=== PATIENT | female | born 1970 | race Caucasian/White ===

== ENCOUNTER 2016-06-11 11:41 | Day surgery (SDC) | payer OTHER ==
[2016-06-11] VITALS (14 sets, daily range): BP systolic 110–131; BP diastolic 49–78; PULSE 85–93; RESP 12–18; O2SAT 91–96
[~2016-06-11] VITALS: Ht 167.6 cm; Wt 111.0 kg
[~2016-06-11 11:41] MED LIST: ATOR80TA PO; CHOL200025 PO; CeFAZolin 2 Gm/50 mL D5W IV Premix IV ONE; GABA-502 PO; GLIP1TAB6 PO; LISI40TA PO; SITA100T12 PO; VITA150T PO
[2016-06-11] MEDS ORDERED: HYDROmorphone 2 mg/mL Inj ONE ×2 (11:42)
[2016-06-11] MEDS ORDERED: Phenylephrine/NS 100 mCg/mL 10 mL Syringe IVPUSH ONE (11:42)
[2016-06-11] MEDS ORDERED: EPHEDrine/NS 5 mg/mL 5 mL Syringe ONE (11:42)
[2016-06-11] MEDS ORDERED: fentaNYL-PF 50 mCg/mL 2 mL Inj ONE ×2 (11:42)
[2016-06-11] MEDS ORDERED: Propofol 10,000 mCg/mL 20 mL Inj ONE (11:42)
[2016-06-11] MEDS ORDERED: Ondansetron 2 mg/mL 2 mL Inj ONE (11:42)
--- NOTE | 2016-06-11 12:23 | PCM.HPANE ---
Patient Data Date of Service: Jun 11, 2016 Surgeon Admitting Provider: Attending Provider:Lucas Velazquez DO Primary Care Physician:Asa Gomes DO Other Provider:Tariq Lion Anesthesia Reason for Visit Right Rotator Cuff Tear, Impingement Syndrome, Sla Ht/WT & BMI Height (Feet): 5 Height (Inches): 6 Weight (Kilograms): 111 Body Mass Index 39.00 Allergies Coded Allergies: No Known Allergies (Unverified , 11/21/11) Past Anesthesia History Anesthesia History: Denies:: Anesthesia Reactions, Fam Anesthesia Reaction, Malignant Hyperthermia Diabetes History Hx Diabetes?: Yes (last Hgb A1C 7.4 on 06/01/16) Type of Diabetes: Type II Glycemic Control: Oral Medication MRSA MRSA: No Medications Hypertension Medication: Yes Home Meds Incl Beta Mercedes: No Reported Medications Vitamin B Complex & Vit C No.4 (Super B Complex)150 Mg Vesymy771 Mg PO DAILY 06/08/16 Cholecalciferol (Vitamin D3) (Vitamin D3)2,000 Unit Tablet2,000 Unit PO DAILY 06/08/16 Lisinopril 40 Mg Sxirbv89 Mg PO DAILY 30 Days Ref 0 06/08/16 Sitagliptin Phos (Januvia)100 Mg Xfbixw424 Mg PO DAILY Ref 0 06/08/16 Glipizide/Metformin 5-500 mg 1 Each Tablet2 Tablet PO BID 30 Days 06/08/16 Gabapentin 300 Mg Atbzpfs555 Mg PO HS Ref 0 06/08/16 Atorvastatin (Lipitor)80 Mg Iqsezy96 Mg PO DAILY Ref 0 06/08/16 Discontinued Reported Medications Lisin/HCTZ-Expunged, Do Not Renew! (Lisin/HCTZ 20/12.5-Expunged, Do Not Renew!) 1 Tab Tablet1 Tab PO BID 11/18/11 Alprazolam-Expunged Drug, Do Not Renew! 0.5 Mg Tablet0.5 Mg PO TIDP FOR PANIC ATTACK 11/18/11 Simvastatin-Expunged Drug, Choose New Med! 40 Mg Butnqz36 Mg PO DAILY IN EVENING 11/18/11 Eszopiclone-Expunged Drug, Do Not Renew! (Lunesta-Expunged Drug, Do Not Renew!) 3 Mg Tablet3 Mg PO DAILY HS 11/18/11 Sitagliptin Phosphate (Januvia)100 Mg Adthtm140 Mg PO DAILY 11/18/11 Lisinopril-Expunged Drug, Do Not Renew! 20 Mg Avdlal66 Mg PO DAILY 11/18/11 Duloxetine-Expunged Drug, Do Not Renew! (Cymbalta-Expunged Drug, Do Not Renew!) 60 Mg Capsule.dr60 Mg PO DAILY 11/18/11 Glyburide-Expunged Drug, Do Not Renew! (Diabeta-Expunged Drug, Do Not Renew!)5 Mg Tablet5 Mg PO BIDAC 11/18/11 Metformin-Expunged Drug, Do Not Renew! 850 Mg Yahuba317 Mg PO BIDWM W/AM & PM MEALS 11/18/11 Citalopram-Expunged Drug, Do Not Renew! 20 Mg Idvedl58 Mg PO DAILY 11/18/11 History History of ENT Problems?: Yes HEENT History: Denies:: Cataracts Glaucoma Hearing Problem Hx of Heart Problems?: Yes Cardiovascular History: Positive for:: Hypertension Denies:: AICD Abdominal Aortic Aneurism Atrial Fibrillation Chest Pain Congestive Heart Failure Coronary Artery Disease Edema Heart Murmur Irregular Heartbeat Pacemaker Peripheral Vascular Rheumatic Fever Thrombophlebitis Valvular Heart Disease Hx of Respiratory Problem?: Yes Respiratory History: Positive for:: Use of C-PAP Machine ( CPAP recommended) Denies:: Asthma COPD Emphysema Oxygen Administration Hx Neurologic Problems?: No Neurological History: Denies:: Headaches Multiple Sclerosis Parkinson's Disease Seizures Hx of GI Problems?: Yes Gastrointestinal History: Denies:: Gall Bladder Disease Gastroesphageal Reflux Gastrointestinal Bleeding Heartburn Hepatitis (hx Hep C - treated- no current viral load ) Hiatal Hernia Liver Disease Rectal Bleeding Hx of Problems?: No Genitourinary History: Denies:: Kidney Stones Urinary Tract Infection Female Hx: Denies:: Currently (tubal ) Problems with Breasts? Skin History: Denies:: History Skin Disorders? Pressure Ulcers Hx Musculoskeletal Problems?: Yes Musculoskeletal History: Positive for:: Musculoskeletal Trauma (right shoulder current admission problem) Denies:: Back Injury Fibromyalgia Joint Replacement Osteoarthritis Rheumatoid Arthritis Systemic Lupus Hx of Psycho/Social Problems?: No Psycho Social History: Positive for:: Hx Depression Hx Surgeries?: Yes (BTL,bilateral CTR) Hx Any Other Health Problems?: Yes Other History: Denies:: Cancer Endocrine Disease Hospitalization Thyroid Disease History Blood Transfusions: Positive for:: Accept Blood Products? Denies:: Blood Transfusions Hx Diabetes: Yes (last Hgb A1C 7.4 on 06/01/16) Hx Alcohol Use: YesAlcoholic Drinks Per Day: one to two drinks monthlyHx Substance Use: NoHave You Smoked inLast 12 mo: No Stop/Bang Treated for Sleep Apnea?: Yes Do You Have a CPAP Machine?: Yes S-Snoring: Do You Snore Loudly: No T-Tired: feel tired, fatigued: No O-Obsered: Observed not breath: No P-Blood Pressure: treated: Yes B- Body Mass Index > 35 kg/m2: Yes A- Age over 50: No N- Neck Large Circumference: No G- Gender Male: No JOVITA Total Score: 2 JOVITA Category 4 OutPt Procedure: Yes Risk Assessment Category Category 1A: Patient has history of documented sleep apnea, and HAS NOT received any narcotic, sedative or anesthesia administration during this stay. Category 1B: Patient has history of documented sleep apnea, and HAS received any narcotic , sedative or anesthesia administration during this stay Category 2: Patient has SUSPECTED Obstructive Sleep Apnea, and HAS received any narcotic , sedative or anesthesia administration during this stay. Category 3: Patient has SUSPECTED Obstructive Sleep Apnea and HAS NOT received narcotic, sedative or anesthesia administration during this stay. Category 4: Outpatient in Procedural Areas with known sleep apnea or who screen positive for High Risk via the STOP/BANG questionnaire. Exam Exam Vital Signs Vital Signs Date Time Temp Pulse Resp B/P Pulse Ox O2 Delivery O2 Flow Rate FiO2 06/11/16 12:05 85 12 127/78 96 Room Air General Appearance: Alert, Oriented X3, Cooperative, No Acute Distress HEENT/AIRWAY: MP 3 Lungs: Clear to Auscultation, Normal Air Movement Heart: Exam Unremarkable, Regular Rate/Rhythm, No Murmurs/Rubs/Gallops Plan Impression Patient chart reviewed, patient interviewed and anesthestic plan with risks, benefits, and alternatives discussed, and informed consent obtained. NPO Status: >8h ASA Physical Status: ASA3 Severe Disease Anesthetic Plan: GA, Regional Block Bene/Risks/Altern/Consents: Yes HP Complete Prior to Induction: Yes Randolph George MD Jun 11, 2016 12:23 Simon Ortiz MD Jun 11, 2016 13:24
[2016-06-11] MEDS ORDERED: CeFAZolin Inj 2 gm / 50mL D5W IV ONE (12:24)
[2016-06-11] MEDS: Lactated Ringer's 1,000 ML IV SCH ×2 (12:48→13:00)
[2016-06-11] MEDS ORDERED: oxyCODONE-Acetamin 5-325 mg Tablet PO PRN (13:25)
[2016-06-11] MEDS ORDERED: Lactated Ringer's 1,000 ML IV SCH (14:05)
[2016-06-11] MEDS ORDERED: hydrALAZINE 20 mg/mL Inj IVPUSH PRN (14:05)
[2016-06-11] MEDS ORDERED: Phenylephrine 10,000 mCg/mL Inj IVPUSH PRN (14:05)
[2016-06-11] MEDS ORDERED: Atropine 0.4 mg/mL Inj IVPUSH PRN (14:05)
[2016-06-11] MEDS ORDERED: Lactated Ringer's 500 ML IV PRN (14:05)
[2016-06-11] MEDS ORDERED: MetoCLOpramide 5 mg/mL 2 mL Inj IVPUSH PRN (14:05)
[2016-06-11] MEDS ORDERED: Dexamethasone 4 mg/mL Inj IVPUSH PRN (14:05)
[2016-06-11] MEDS ORDERED: HYDROmorphone 1 mg/mL Inj IVPUSH PRN (14:05)
[2016-06-11] MEDS ORDERED: fentaNYL-PF 50 mCg/mL 2 mL Inj IVPUSH PRN (14:05)
[2016-06-11] MEDS ORDERED: Ondansetron 2 mg/mL 2 mL Inj IVPUSH PRN (14:05)
[2016-06-11] MEDS ORDERED: EPHEDrine Sulfate 50 mg/mL Inj IVPUSH PRN (14:05)
[2016-06-11] MEDS ORDERED: Labetalol 5 mg/mL 4 mL Inj IV PRN (14:05)
--- NOTE | 2016-06-11 17:18 | PCM.ANEP1 ---
Post Anesthesia Phase 1 PACU Phase 1 Assessment Date of Service: Jun 11, 2016 Vital Signs 36.5 106/55 99 13 96% FM Anesthetic Administered: GA Level of Alertness: Sleepy, easy to arouse PADILLA's with Equal Strength: Yes Pain: No Nausea or Vomiting: No Oxygen Delivery: Simple Mask Lungs: Clear to Auscultation, Normal Air Movement Simon Ortiz MD Jun 11, 2016 17:18
--- NOTE | 2016-06-11 18:40 | PCM.ANEP2 ---
Post Anesthesia Evaluation ASA/CMS Post Anesthesia Date of Service: Jun 11, 2016 VS in Patient's Normal Range?: Yes Resp Stable; Airway Patent?: Yes CV Function & Hydration Stable: Yes Mental Status Recovered?: Yes Pain control Satisfactory?: Yes N/V Control Satisfactory?: Yes Simon Ortiz MD Jun 11, 2016 18:40
[2016-06-11] MEDS ORDERED: Lactated Ringer's 1,000 ML IV ONE (19:23)
--- NOTE | 2016-06-11 21:02 | NUR ---
Recovery & Discharge Patient arrived to floor at 2014 for recovery and discharge. Temp 36.4, P-90, BP-145/86, R-18, O2-96% on room air. Patient having some N/V, Reglan given by Munira OR Nurse. Making sure patient's O2 sat. is within 2% of baseline, Then DC.
--- NOTE | 2016-06-11 21:49 | NUR ---
Discharge Patient discharged home at 2145 with family in PMV. Patient vitals stable. A&Ox4. O2 sat. 94% on room air. Peripheral IV removed intact. Patient left with all personal belongings. Patient received and signed all discharge instructions. All prescriptions given to patient.
--- NOTE | 2016-06-13 03:45 | OP ---
[address] [address] OPERATIVE REPORT PATIENT: DINORA MORE : 1970 MR#: [id number] ADMIT: 06/11/2016 JOB ID: [id number] DATE OF SURGERY: 06/11/2016 PREOPERATIVE DIAGNOSIS(ES): 1. Right shoulder rotator cuff tear. 2. Right shoulder impingement syndrome. 3. Right shoulder superior labral tear. POSTOPERATIVE DIAGNOSIS(ES): 1. Right shoulder massive rotator cuff tear. 2. Right shoulder impingement syndrome. 3. Right shoulder type 2 superior labral tear from anterior to posterior (SLAP). PROCEDURES: 1. Right shoulder arthroscopy with rotator cuff repair. 2. Right shoulder arthroscopy subacromial decompression. 3. Right shoulder open biceps tenodesis. SURGEON: Lucas Velazquez DO. ANESTHESIA: General. CNA INSTRUCTOR: Mert Noriega PA-C. Mert Noriega PA-C was necessary for help with manipulation of the intra-articular equipment, including the camera as well as for retraction during the open portion of the procedure. BRIEF HISTORY: The patient is a pleasant 45-year-old female who presents with a longstanding history of right shoulder pain. She presented to me with an MRI and a referral from Dr. Sarmad Fregoso, which demonstrated a large retracted rotator cuff tear as well as significant rotator cuff tendinopathy and evidence of also a SLAP tear. I discussed with the patient the risks, benefits and indications to proceed with a right shoulder arthroscopy with rotator cuff repair, subacromial decompression and possible open biceps tenodesis. She understood the risks included, but not limited to, neurovascular injury, tendon injury, infection, failure of fixation, stiffness, persistent pain which may require further intervention. The patient had all her questions answered. Consent was signed and placed in chart. PROCEDURE IN DETAIL: The patient was brought to the operating suite and placed supine on the operating table. Surgical time-out was performed. Everyone room was in agreement. After appropriate anesthesia was obtained, patient was then placed into the beach chair position with all prominences well padded. The right upper extremity was then prepped and draped in a sterile fashion. The right arm was then placed into arthroscopic arm gale. A posterior viewing portal was then developed in typical fashion. The camera introduced into the glenohumeral joint. Under gross observation, there was some hypertrophic synovitis as well as significant fraying to the superior aspect of the labrum. There was minimal bicipital tendinopathy appreciated. There was a large rotator cuff tear that can be appreciated from the undersurface, encompassing the majority of the supraspinatus. Anterior working portal was then developed in typical fashion and limited debridement was performed. The SLAP tear was probed demonstrating a type 2 SLAP tear. Decision was made to proceed with a biceps tenotomy at this point for later tenodesis. The biceps was tenotomized near its insertion on the superior labrum and a shaver then utilized to debride back the biceps stump to a stable rim of the labrum. The camera then brought into the subacromial space. On gross observation, there was significant hypertrophic bursa. Lateral working portal was then created. A shaver introduced to perform extensive bursectomy. A large tear of the supraspinatus as well as a portion of the infraspinatus was identified. The rotator cuff tear was mobilized and could be pulled just shy of the location of its tear to just lateral to the articular surface of the humeral head. The tuberosity insertion point, just lateral to the humeral head, was then debrided utilizing a shaver as well as a bur. This was followed by application of two 4.5 mm Arthrex corkscrew anchors. The suture limbs were then shuttled through the rotator cuff and tied with sliding knots. Excellent medial row fixation was achieved. Decision was made to utilize lateral row anchors to create a double row repair. Two self-tapping self-punching SwiveLock lateral row anchors were placed in the lateral cortex of the tuberosity. There was not good purchase laterally and both anchors, as well as the self-punching tips, had to be removed. The fixation was left as a single medial row repair. After evaluation of one of the needle tips of the Scorpion suture passer, it was noted that the very tip of the needle was missing. This encompassed approximately 3-4 mm of a metallic end. A C-arm was brought in. X-rays were obtained of the shoulder. No foreign body or metallic fragments were appreciated on the plain films. Due diligence was made to check also again within the joint as well as subacromial space. No metallic fragments were identified. Attention was then turned towards the undersurface of the acromion. A surface electrocautery wand was utilized to delineate the undersurface of the acromion and a limited acromioplasty was then performed. The patient's distal clavicle had no evidence of arthritis and thus no distal clavicle excision was performed. The arthroscopic equipment was removed from the joint. Attention was turned towards the open biceps tenodesis. The anterior portal was extended distally in a deltopectoral interval. The biceps tendon was identified within the groove and delivered into the operative field. A guidewire was then placed at the planned position for the tenodesis. This was followed by over reaming and a four tip SwiveLock implant with a trailing screw was then used to shuttle the biceps tendon within the prepared hole and to hold it into place. Excellent fixation was achieved at the free end of the biceps as well as the sutures were then cut flush with the bicipital groove. Copious irrigation was performed. The anterior incision then closed with Vicryl and nylon for the skin and all the portals. The patient was then placed into a shoulder immobilizer after bulky dressing was placed to the shoulder. ESTIMATED BLOOD LOSS: 25 cc. COMPLICATIONS: Broken needle tip off of the Scorpion that was not identified with arthroscopic examination within the shoulder and also not identified with fluoroscopic examination intraoperatively. Loss of lateral row fixation and lateral row anchors were removed, leaving a single row of medial row repair. POSTOPERATIVE PLAN: The patient will follow up in my office in two weeks due to the large rotator cuff tear that was repaired. The patient will be in a shoulder immobilizer for six weeks prior to initiating any motion with therapy.
== END 2016-06-11 21:46 | disposition home or self-care (01) ==
LOC: SAS 11:41
PROVIDERS: ATTEND Orthopaedic Surgery
DX: S46.011A Strain of muscle(s) and tendon(s) of the rotator cuff of right shoulder, initial encounter (principal); S43.431A Superior glenoid labrum lesion of right shoulder, initial encounter; M75.41 Impingement syndrome of right shoulder; W00.0XXA Fall on same level due to ice and snow, initial encounter; Y93.01 Activity, walking, marching and hiking; Y92.9 Unspecified place or not applicable; I10 Essential (primary) hypertension; E11.40 Type 2 diabetes mellitus with diabetic neuropathy, unspecified; B18.2 Chronic viral hepatitis C; E78.5 Hyperlipidemia, unspecified; F34.1 Dysthymic disorder; Z79.84 Long term (current) use of oral hypoglycemic drugs
CPT/HCPCS: 23430; 29826; 29827; 76001; 76942; C1713; J0171; J0690; J1170; J2250; J2370; J2405; J2765; J3010; J7120